=== PATIENT | male | born 1990 | race Caucasian/White ===

== ENCOUNTER 2021-02-12 09:11 | Emergency (ER) | payer OTHER ==
[~2021-02-12] VITALS: Ht 180.3 cm; Wt 74.0 kg
[2021-02-12] MEDS ORDERED: ACETAMINOPHEN 325MG TABLET PO ONE (09:30)
[2021-02-12] MEDS ORDERED: BACITRACIN ZINC OINT UDPKT TOP ONE (09:30)
[2021-02-12] MEDS ORDERED: LIDOCAINE HCL/PF 1% 10 MG/ML 5ML VIAL IJ ONE (09:30)
[2021-02-12] MEDS ORDERED: TETANUS, DIPHTHERIA, PERTUSSIS VAC/PF 0.5ML (>7YR OLD) IM ONE (09:30)
[2021-02-12] MEDS ORDERED: IBUP-2029 MT (10:30)
[2021-02-12] MEDS ORDERED: AMOX250S70 GT (10:30)
[2021-02-12] MEDS ORDERED: BO1 TP (10:30)
[2021-02-12 11:37] VITALS: BP 131/84
== END 2021-02-12 11:38 | disposition home or self-care (01) ==
LOC: ER 09:23
DX: S01.81XA Laceration without foreign body of other part of head, initial encounter (principal); S60.221A Contusion of right hand, initial encounter; Y00.XXXA Assault by blunt object, initial encounter; R03.0 Elevated blood-pressure reading, without diagnosis of hypertension; Y93.89 Activity, other specified; Y92.89 Other specified places as the place of occurrence of the external cause; J45.909 Unspecified asthma, uncomplicated; Z23 Encounter for immunization
CPT/HCPCS: 12011; 70450; 70486; 73130; 90471; 90715; 93005; 99285; A4217; J3490; Z7610

== ENCOUNTER 2021-02-20 11:44 | Emergency (ER) | payer MEDICAID, OTHER ==
[~2021-02-20] VITALS: Ht 172.7 cm; Wt 70.0 kg
[~2021-02-20 11:44] MED LIST: AMOX250S70 GT; BO1 TP; IBUP-2029 MT
[2021-02-20 12:03] VITALS: BP 107/80
== END 2021-02-20 13:24 | disposition home or self-care (01) ==
LOC: ER 11:44
DX: Z48.02 Encounter for removal of sutures (principal)
CPT/HCPCS: 99281; Z7610